=== PATIENT | male | born 1995 | race Hispanic/Latino ===

== ENCOUNTER 2018-03-21 15:57 | Emergency (ER) | payer BC ==
[2018-03-21] MEDS ORDERED: NA CHLORIDE 0.9% 1,000 ML ONE (18:08)
[2018-03-21 18:43] LABS: Urine Blood NEGATIVE (NEG); Urine Glucose NEGATIVE (NEG); Urine Protein NEGATIVE (NEG); Urine Specific Gravity 1.025 (1.005-1.030)
[2018-03-21] MEDS ORDERED: KETOROLAC 30 MG/ML INJ ONE (18:47)
[2018-03-21] MEDS ORDERED: ONDANSETRON 4 MG/2 ML VIAL ONE (18:47)
[2018-03-21 18:56] LABS: Absolute Monocytes 0.8 K/uL (0.1-1.3); Basophils % 0.6 % (0-1.3); Eosinophils % 2.9 % (0-4.4); Hematocrit 42.7 % (39.6-49.0); Lymphocytes % 21.9 % (15.3-44.8); MCV 93.6 fL (80-100); MPV 7.6 fL (7.6-11.3); Monocytes % 9.3 % (3.3-12.3); RBC Red Blood Cell Count 4.56 M/uL (4.33-5.43)
--- NOTE | 2018-03-21 19:05 | RAD REPORT ---
EXAM DESCRIPTION: CT - Stone Protocol - 03/21/2018 6:55 pm CLINICAL HISTORY: Flank pain. FLANK PAIN COMPARISON: None TECHNIQUE: Axial images were obtained without oral or IV contrast. Lack of contrast limits solid org an and vascular assessment. The [id number] spans the entirety of the system partially obscuring uppermost abdomen and lung bases. Coronal reformatted images were obtained and reviewed. All CT scans are performed using dose optimization technique as appropriate and may include automated exposure control or mA/KV adjustment according to patient size. FINDINGS: The lower lung dut[place] are clear. Imaged portions of the liver and spleen show no suspicious findings on non-contrast imaging. The panc reas and adrenal glands are normal. No pathologic lymphadenopathy in the abdomen or pelvis. No urinary tract stones or obstructive uropathy. No bowel obstruction, free air, free fluid or abscess. Normal appendix noted.21 mm area of epiploic a ppendagitis seen adjacent to the descending colon in the left flank region. No significant bony abnormality. IMPRESSION: No urinary tract stones or obstructive uropathy. Epiploic appendagitis is present in the left flank region adjacent to the descending colon.
[2018-03-21 19:15] LABS: ALT/SGPT 94 U/L (12-78); AST/SGOT 25 U/L (15-37); Albumin 3.9 g/dL (3.4-5.0); Alkaline Phosphatase 64 U/L (45-117); Amylase Level 31 U/L (25-115); BUN Blood Urea Nitrogen 13 mg/dL (7-18); Bicarbonate 28 mmol/L (21-32); Bilirubin Direct < 0.1 mg/dL (0-0.2); Bilirubin Total 0.3 mg/dL (0.2-1.0); Creatine Phosphokinase 157 U/L (39-308); Glucose Level 96 mg/dL (74-106); Lipase 115 U/L (73-393); Potassium 4.1 mmol/L (3.5-5.1); Protein, Total 7.8 g/dL (6.4-8.2); Sodium Level 138 mmol/L (136-145)
--- NOTE | 2018-03-21 19:25 | ER ---
Nurse's Notes [facility] Name: Boris Beebe Age: 22 yrs Sex: Male : 1995 Arrival Date: 03/21/2018 Time: 16:11 Bed 23 Private MD: Shahbaz Nick H Diagnosis: Other abdominal pain-Epiploic Appendagitis Presentation: 03/21 16:46 Presenting complaint: Patient states: yesterday had left side abd pain, thought it was iw sore from playing with dogs, pain has gotten worse today, denies n/v/d. Transition of care: patient was not received from another setting of care. Onset of symptoms was March 20, 2018. Risk Assessment: Do you want to hurt yourself or someone else? Patient reports no desire to harm self or others. Initial Sepsis Screen: Does the patient meet any 2 criteria? No. Patient's initial sepsis screen is negative. Does the patient have a suspected source of infection? No. Patient's initial sepsis screen is negative. Care prior to arrival: None. 16:46 Method Of Arrival: Ambulatory iw 16:46 Acuity: MARY 3 iw Triage Assessment: 19:42 General: Behavior is calm, cooperative, appropriate for age. mb3 Historical: - Allergies: 16:49 NKA; iw - Home Meds: 16:49 Clonazepam Oral [Active]; Flexeril Oral [Active]; iw - PSHx: 16:49 Tonsillectomy; left ankle; iw - Immunization history:: Adult Immunizations. - Social history:: Smoking status: Patient uses tobacco products, smokes one-half pack cigarettes per day, Patient uses alcohol, weekends only. - Ebola Screening: : Patient negative for fever greater than or equal to 101.5 degrees Fahrenheit, and additional compatible Ebola Virus Disease symptoms Patient denies exposure to infectious person Patient denies travel to an Ebola-affected area in the 21 days before illness onset No symptoms or risks identified at this time. Screenin:39 Abuse screen: Denies threats or abuse. Nutritional screening: No deficits noted. mb3 Tuberculosis screening: No symptoms or risk factors identified. Fall Risk None identified. Assessment: 19:37 General: Appears in no apparent distress. comfortable. Pain: Complains of pain in left mb3 lower quadrant Pain radiates to left low back. Neuro: No deficits noted. Cardiovascular: No deficits noted. Respiratory: No deficits noted. GI: Abdomen is flat, Bowel sounds present X 4 quads. Abd is soft and non tender Reports lower abdominal pain. : No signs and/or symptoms were reported regarding the genitourinary system. EENT: No signs and/or symptoms were reported regarding the EENT system. Vital Signs: 16:48 BP 143 / 93; Pulse 94; Resp 16; Temp 97.1; Pulse Ox 98% on R/A; Weight 106.59 kg; iw Height 5 ft. 8 in. (172.72 cm); Pain 7/10; 19:40 BP 121 / 77; Pulse 70; Resp 16; Pulse Ox 98% on R/A; mb3 16:48 Body Mass Index 35.73 (106.59 kg, 172.72 cm) iw ED Course: 16:11 Patient arrived in ED. as 16:11 Shahbaz Nick DO is Private Physician. as 16:47 Triage completed. iw 16:48 Arm band placed on. iw 17:32 Arnaud Sumner, RN is Primary Nurse. mb3 17:46 Tan Arzate PA is PHCP. cp 17:46 Tan Pierce MD is Attending Physician. cp 18:10 Inserted saline lock: 20 gauge in right antecubital area, using aseptic technique. mb3 Blood collected. 18:55 CT Stone Protocol In Process Unspecified. EDMS 19:40 No provider procedures requiring assistance completed. mb3 19:40 IV discontinued, intact, bleeding controlled, No redness/swelling at site. Pressure mb3 dressing applied. 19:42 Patient has correct armband on for positive identification. mb3 Administered Medications: 18:15 Drug: NS 0.9% 1000 ml Route: IV; Rate: 1 bolus; Site: right antecubital; mb3 19:36 Follow up: Response: No adverse reaction; IV Status: Completed infusion; IV Intake: mb3 1000ml 18:40 Drug: Zofran 4 mg Route: IVP; Site: right antecubital; mb3 19:36 Follow up: Response: No adverse reaction mb3 18:40 Drug: TORadol 30 mg Route: IVP; Site: right antecubital; mb3 19:36 Follow up: Response: No adverse reaction mb3 Intake: 19:36 IV: 1000ml; Total: 1000ml. mb3 Outcome: 19:25 Discharge ordered by . cp 19:41 Discharged to home ambulatory. mb3 19:41 Condition: stable 19:41 Discharge instructions given to patient, Instructed on discharge instructions, follow up and referral plans. medication usage, Demonstrated understanding of instructions, follow-up care, medications, Prescriptions given X 2. 19:42 Patient left the ED. mb3 Signatures: Dispatcher [employer] EDMS Reina Short as Alis Salinas, RN RN Tan Lindsay PA PA cp Barnett, Mark, RN RN mb3
--- NOTE | 2018-03-21 19:25 | EDPHYS ---
Physician Documentation [facility] Name: Boris Beebe Age: 22 yrs Sex: Male : 1995 Arrival Date: 03/21/2018 Time: 16:11 Bed 23 Private MD: Shahbaz Nick H ED Physician Tan Pierce HPI: 03/21 18:00 This 22 yrs old Male presents to ER via Ambulatory with complaints of cp Abdominal Pain. 18:00 The patient presents with abdominal pain left lateral abdomen. Onset: The cp symptoms/episode began/occurred yesterday. The symptoms do not radiate. 18:00 Associated signs and symptoms: Pertinent negatives: nausea, vomiting, and diarrhea, cp blood in stools, chest pain, constipation, dysuria, fever, shortness of breath, testicular pain. The symptoms are described as waxing/waning. Modifying factors: the symptoms are aggravated by pressure. Historical: - Allergies: 16:49 NKA; iw - Home Meds: 16:49 Clonazepam Oral [Active]; Flexeril Oral [Active]; iw - PSHx: 16:49 Tonsillectomy; left ankle; iw - Immunization history:: Adult Immunizations. - Social history:: Smoking status: Patient uses tobacco products, smokes one-half pack cigarettes per day, Patient uses alcohol, weekends only. - Ebola Screening: : Patient negative for fever greater than or equal to 101.5 degrees Fahrenheit, and additional compatible Ebola Virus Disease symptoms Patient denies exposure to infectious person Patient denies travel to an Ebola-affected area in the 21 days before illness onset No symptoms or risks identified at this time. ROS: 18:05 Constitutional: Negative for body aches, chills, fever, poor PO intake. cp 18:05 Eyes: Negative for injury, pain, redness, and discharge. cp 18:05 ENT: Negative for drainage from ear(s), ear pain, sore throat, difficulty swallowing, difficulty handling secretions. 18:05 Cardiovascular: Negative for chest pain, edema, palpitations. 18:05 Respiratory: Negative for cough, shortness of breath, wheezing. 18:05 Abdomen/GI: Positive for abdominal pain, of the anterior aspect of left lateral abdomen, left upper quadrant and left lower quadrant, Negative for nausea, vomiting, and diarrhea, constipation, anorexia, black/tarry stool, rectal bleeding. 18:05 Back: Negative for injury or acute deformity. 18:05 : Negative for urinary symptoms, testicular pain 18:05 Skin: Negative for cellulitis, rash. 18:05 Neuro: Negative for altered mental status, headache, weakness. 18:05 All other systems are negative. Exam: 18:12 Constitutional: The patient appears in no acute distress, alert, non-toxic, well cp developed, well nourished. 18:12 Head/Face: Normocephalic, atraumatic. cp 18:12 Eyes: Periorbital structures: appear normal, Conjunctiva: normal, no exudate, no injection, Sclera: no appreciated abnormality, Lids and lashes: appear normal, bilaterally. 18:12 ENT: External ear(s): are unremarkable, Nose: is normal, Mouth: is normal, Posterior pharynx: is normal, airway is patent, no erythema, no exudate. 18:12 Chest/axilla: Inspection: normal, Palpation: is normal, no crepitus, no tenderness. 18:12 Cardiovascular: Rate: normal, Rhythm: regular, Edema: is not appreciated, JVD: is not appreciated. 18:12 Respiratory: the patient does not display signs of respiratory distress, Respirations: normal, no use of accessory muscles, no retractions, no splinting, no tachypnea, labored breathing, is not present, Breath sounds: are clear throughout, no decreased breath sounds, no stridor, no wheezing. 18:12 Abdomen/GI: Inspection: abdomen appears normal, Bowel sounds: active, all quadrants, Palpation: soft, in all quadrants, mild abdominal tenderness, in the anterior aspect of left lateral abdomen, left upper quadrant and left lower quadrant, voluntary guarding, is not appreciated, involuntary guarding, is not appreciated. 18:12 Back: CVA tenderness, is absent. 18:12 Musculoskeletal/extremity: Exam is negative for calf tenderness, decreased range of motion, deformity, injury. 18:12 Skin: cellulitis, is not appreciated, no rash present. 18:12 Neuro: Orientation: to person, place \T\ time. Mentation: lucid, able to follow commands, Cerebellar function: is grossly normal, Motor: moves all fours, strength is normal, Sensation: is normal. Vital Signs: 16:48 BP 143 / 93; Pulse 94; Resp 16; Temp 97.1; Pulse Ox 98% on R/A; Weight 106.59 kg; iw Height 5 ft. 8 in. (172.72 cm); Pain 7/10; 19:40 BP 121 / 77; Pulse 70; Resp 16; Pulse Ox 98% on R/A; mb3 16:48 Body Mass Index 35.73 (106.59 kg, 172.72 cm) iw MDM: 17:46 Patient medically screened. cp 18:00 Differential diagnosis: appendicitis, bowel obstruction, cholecystitis, Cholelithiasis, cp diverticulitis, GI Bleed, Pyelonephritis, Testicular Torsion, Ureterolithiasis, urinary tract infection. 19:23 Data reviewed: vital signs, nurses notes, lab test result(s), radiologic studies, CT cp scan, and as a result, I will discharge patient. 19:23 Counseling: I had a detailed discussion with the patient and/or guardian regarding: the cp historical points, exam findings, and any diagnostic results supporting the discharge/admit diagnosis, lab results, radiology results, to return to the emergency department if symptoms worsen or persist or if there are any questions or concerns that arise at home. Response to treatment: the patient's symptoms have mildly improved after treatment. Special discussion: Based on the patient's Hx, exam, and Dx evaluation, there is no indication for emergent surgery or inpatient Tx. It is understood by the patient/guardian that if the Sx's persist or worsen they need to return immediately for re-evaluation. 03/21 17:55 Order name: Amylase, Serum cp 03/21 17:55 Order name: Basic Metabolic Panel 03/21 17:55 Order name: CBC with Diff; Complete Time: 19:07 03/21 19:07 Interpretation: Reviewed. 03/21 17:55 Order name: Creatinine for Radiology; Complete Time: 19:07 03/21 17:55 Order name: Hepatic Function; Complete Time: 19:21 cp 03/21 19:21 Interpretation: Normal except: ALT 94; GLOB 3.9; A/G 1.0. 03/21 17:55 Order name: Lipase; Complete Time: 19:21 03/21 17:55 Order name: Urine Microscopic Only 03/21 17:55 Order name: CPK; Complete Time: 19:21 03/21 17:56 Order name: Amylase Level; Complete Time: 19:21 [facility] 03/21 17:56 Order name: Basic Metabolic Panel; Complete Time: 19:21 [facility] 03/21 18:16 Order name: Urine Dipstick--Ancillary (enter results); Complete Time: 19:07 03/21 18:43 Order name: CT Stone Protocol; Complete Time: 19:07 03/21 17:55 Order name: IV Saline Lock; Complete Time: 19:37 03/21 17:55 Order name: Labs collected and sent; Complete Time: 19:37 03/21 17:55 Order name: Urine Dipstick-Ancillary (obtain specimen); Complete Time: 19:37 cp Administered Medications: 18:15 Drug: NS 0.9% 1000 ml Route: IV; Rate: 1 bolus; Site: right antecubital; mb3 19:36 Follow up: Response: No adverse reaction; IV Status: Completed infusion; IV Intake: mb3 1000ml 18:40 Drug: Zofran 4 mg Route: IVP; Site: right antecubital; mb3 19:36 Follow up: Response: No adverse reaction mb3 18:40 Drug: TORadol 30 mg Route: IVP; Site: right antecubital; mb3 19:36 Follow up: Response: No adverse reaction 3 Disposition: 03/21/18 19:25 Discharged to Home. Impression: Other abdominal pain - Epiploic Appendagitis. - Condition is Stable. - Discharge Instructions: Abdominal Pain, Adult. - Prescriptions for Diclofenac Sodium 75 mg Oral Tablet, Delayed Release (E.C.) - take 1 tablet by ORAL route 2 times per day; 20 tablet. Zofran 4 mg Oral Tablet - take 1 tablet by ORAL route every 12 hours As needed; 20 tablet. - Medication Reconciliation Form, Thank You Letter, Antibiotic Education, Prescription Opioid Use form. - Follow up: Private Physician; When: 2 - 3 days; Reason: Recheck today's complaints. - Problem is new. - Symptoms have improved. Addendum: 03/24/2018 10:33 Co-signature as Attending Physician, Tan Pierce MD I agree with the assessment and c miller plan of care. Signatures: Dispatcher [employer] [facility] Tan Pierce MD MD cha Williams, Irene, RN RN Tan Lindsay PA PA Arnaud Toth, RN RN mb3 Corrections: (The following items were deleted from the chart) 03/21 19:42 19:25 03/21/2018 19:25 Discharged to Home. Impression: Other abdominal pain - Epiploic mb3 Appendagitis. Condition is Stable. Forms are Medication Reconciliation Form, Thank You Letter, Antibiotic Education, Prescription Opioid Use. Follow up: Private Physician; When: 2 - 3 days; Reason: Recheck today's complaints. Problem is new. Symptoms have improved. cp
[2018-03-21 19:53] VITALS: TEMP 97.1; O2SAT 98
[2018-03-21 19:55] VITALS: BP 121/77
[2018-03-21 20:08] LABS: Urine Bacteria <20 /HPF (NONE SEEN); Urine Culture Reflex Order NOT NEEDED; Urine RBC <5 /HPF (NONE SEEN)
== END 2018-03-21 19:42 | disposition home or self-care (01) ==
LOC: ER 15:57
DX: K63.89 Other specified diseases of intestine (principal); F17.210 Nicotine dependence, cigarettes, uncomplicated
CPT/HCPCS: 36415; 74176; 76377; 80048; 80076; 81003; 81015; 82150; 82550; 83690; 85025; 96361; 96374; 96375; 99284; J2405; J7030

== ENCOUNTER 2020-05-05 15:55 | Emergency (ER) | payer BC ==
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
--- OUTSIDE RECORDS SUMMARY | 2020-05-05 15:59 | XMS REPORT | Summary of Care ---
:1995 Author Organization [facility] - Health Address [address] [place] [address] Care Team Providers Name Role Phone Unavailable Primary Care Provider Unavailable Encounter Details Date Type Department Care Team Description 04/06/2020 Letter (Out) [facility] [employer] Message s Doctor Unassigned, No [address] [facility] [place] [phone] [facility] [phone] [place] [address] Allergies Not on Filedocumented as of this encounter (statuses as of 04/06/2020) Medications Not on filedocumented as of this encounter (statuses as of 04/06/2020) Active Problems Not on filedocumented as of this encounter (statuses as of 04/06/2020) Social History Tobacco Use Types Packs/Day Years Used Date Never Assessed Sex Assigned at Date Recorded Not on file documented as of this encounter Last Filed Vital Signs Not on filedocumented in this encounter Plan of Treatment Date Type Specialty Care Team Description 04/06/2020 Laboratory Only Family Medicine Yolis Call FNP [address] [place] [phone] Arrived Lab, Adc Fam Pob I Health Maintenance Due Date Last Done Comments VARICELLA VACCINES (1 of 2 - 2-dose 1997 childhood series) MENINGOCOCCAL B VACCINES (1 of 2 - 2006 Risk Bexsero 2-dose series) HPV VACCINES (1 - Male 2-dose 2007 series) Depression Screening 2008 DTaP,Tdap,and Td Vaccines (1 - 2015 Tdap) INFLUENZA VACCINE (#1) 2020 PNEUMOCOCCAL 0-64 YEARS COMBINED Aged Out No longer eligible based on SERIES patient's age to complete this topic documented as of this encounter Results Not on filedocumented in this encounter Insurance Payer Benefit Plan Subscriber ID Effective Dates Phone Address Type / Group [facility] [id number] 2017-Phyllis [phone] [address] PPO/POS [place] - OUT OF 7 [id number] [place] [address] documented as of this encounter
--- OUTSIDE RECORDS SUMMARY | 2020-05-05 15:59 | XMS REPORT | Summary of Care ---
:1995 Author Organization [facility] - [facility] Address [address] [place] [address] Care Team Providers Name Role Phone Unavailable Primary Care Provider Unavailable Reason for Visit Reason Comments LAB covid Encounter Details Date Type Department Care Team Description 04/06/2020 Laboratory Only [facility] Family Gabe Call, AUGER SUPERVISOR [address] [place] [phone] Exposure to Covid-[address] [facility] Fam Pob I Virus (Primary Dx) [address] [place] [address] Allergies Not on Filedocumented as of this encounter (statuses as of 04/06/2020) Medications Not on filedocumented as of this encounter (statuses as of 04/06/2020) Active Problems Not on filedocumented as of this encounter (statuses as of 04/06/2020) Social History Tobacco Use Types Packs/Day Years Used Date Never Assessed Sex Assigned at Date Recorded Not on file COVID-19 Exposure Response Date Recorded In the last month, have you been in contact with Yes 04/06/2020 4:11 PM CDT someone who was confirmed or suspected to have Coronavirus / COVID-19? documented as of this encounter Last Filed Vital Signs Not on filedocumented in this encounter Nursing Notes Judith Miner RN - 04/06/2020 4:20 PM CDTRliat Karen Beebe is a 24 year old male here for COVID Screening with a Nasopharyngeal Swab All droplet and contact precautions taken with appropriate PPE worn while interacting with patient. ? Goggles ? N95 Mask ? Gloves ? Gown RR 17 Pulse Ox 97% Patient educated on plan of care for visit, swabbing technique, risks and benefits of test and length of time to receive results. Verbal consent obtained to perform test. CDC Fact Sheet for Patients nCoV Diagnostic Panel dated 11/08/2019 and Factsheet What to Do if Sick with COVID 19 10/19/19 provided. Patient swabbed per appropriate nasopharyngeal technique, and patient tolerated well. Patient was discharged from the testing clinic in stable condition. Bilat nares swabbed. Judith Miner RN 04/06/2020 4:12 PM documented in this encounter Plan of Treatment Name Type Priority Associated Diagnoses Order S chedule COVID-19 (PCR MOLECULAR LAB Routine Exposure to Covid -19 Expected: 04/06/2020, TESTING) Virus Expires: 2020 Health Maintenance Due Date Last Done Comments [...] Results Not on filedocumented in this encounter Visit Diagnoses Diagnosis Exposure to Covid-19 Virus - Primary documented in this encounter Additional Health Concerns Infection Onset Date Last Indicated Resolved Time COVID-19 Rule Out 04/06/2020 04/06/2020 documented as of this encounter Insurance Payer Benefit Plan Subscriber ID Effective Dates Phone Address Type / Group [facility] [id number] 2017-Phyllis [phone] [address] PPO/POS [place] - OUT OF t 7 [id number] [place] [address] documented as of this encounter
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
--- NOTE | 2020-05-05 19:19 | RAD REPORT ---
EXAM DESCRIPTION: RAD - Chest Single View - 05/05/2020 7:00 pm CLINICAL HISTORY: COUGH COMPARISON: None TECHNIQUE: AP portable chest image was obtained 05/05/2020 7:00 pm . FINDINGS: Lung volumes are very low. No peripheral mass or consolidation. No significant failure or volume overload identified. Heart and vasculature are normal. No measurable pleural effusion and no p neumothorax. No acute bony abnormality seen. No acute aortic findings suspected. IMPRESSION: No acute cardiopulmonary process.
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
[2020-05-05 19:24] LABS: Absolute Lymphocytes (CBC) 1.7 K/uL (0.7-4.9); Basophils % 1.4 % (0-1.3); Lymphocytes % 34.8 % (15.3-44.8); MPV 7.8 fL (7.6-11.3); RBC Red Blood Cell Count 4.08 M/uL (4.33-5.43)
[2020-05-05 22:00] LABS: C-Reactive Protein 9.06 mg/L (<3.00); Potassium 4.1 mmol/L (3.5-5.1)
[2020-05-05] MEDS ORDERED: KETOROLAC 30 MG/ML INJ ONE (22:16)
[2020-05-05] MEDS ORDERED: dexAMETHasone 10 MG/ML VIAL ONE (22:45)
--- NOTE | 2020-05-05 22:47 | EDPHYS ---
Physician Documentation [facility] Name: Boris Beebe Age: 24 yrs Sex: Male : 1995 Arrival Date: 05/05/2020 Time: 15:56 Bed 26 Private MD: Shahbaz Nick H ED Physician Garcia Contreras HPI: 05/05 18:03 This 24 yrs old Male presents to ER via Ambulatory with complaints of Wound jmm Infection. 18:03 The patient presents with pain, that is acute. Onset: The symptoms/episode jmm began/occurred acutely, 1 day(s) ago. Modifying factors: The symptoms are alleviated by nothing. the symptoms are aggravated by nothing. This is a 24 year old male with a history of anxiety that presents to the ED with complaints of swelling to his right great toe and foot and removing his nail yesterday. Patient [place] Patient also complains of diarrhea, cough, sore throat. . Historical: - Allergies: 16:31 NKA; ca1 - Home Meds: 16:31 Clonazepam Oral [Active]; Tylenol #4 Oral [Active]; ca1 - PMHx: 16:31 None; ca1 - PSHx: 16:31 Tonsillectomy; left ankle; ca1 - Immunization history:: Adult Immunizations up to date. - Social history:: Smoking status: Patient reports the use of cigarette tobacco products, denies chronic smoking, but will smoke occasionally. ROS: 18:03 Constitutional: Negative for fever, chills, and weight loss, Cardiovascular: Negative jmm for chest pain, palpitations, and edema. 18:03 Respiratory: Positive for cough. 18:03 Abdomen/GI: Positive for diarrhea. 18:03 MS/extremity: Positive for pain, swelling. 18:03 All other systems are negative. Exam: 18:03 Constitutional: This is a well developed, well nourished patient who is awake, alert, jmm and in no acute distress. Head/Face: atraumatic. Eyes: EOMI, no conjunctival erythema appreciated ENT: Moist Mucus Membranes Neck: Trachea midline, Supple Chest/axilla: Normal chest wall appearance and motion. Cardiovascular: Regular rate and rhythm. No edema appreciated Respiratory: Normal respirations, no respiratory distress appreciated Abdomen/GI: Non distended, soft Back: Normal ROM 18:03 Musculoskeletal/extremity: FROM appreciated to the right lower extremity, full dorsalis pulse, compartments are soft, NVI. 18:03 Skin: mild erythema noted surrounding the nail bed of the right 1st toe, no streaking apprciated,. 18:03 Neuro: Orientation: is normal, Mentation: is normal, Memory: is normal. 18:03 Psych: Behavior/mood is pleasant, cooperative. Vital Signs: 16:24 BP 146 / 84; Pulse 87; Resp 16 S; Temp 97.2; Pulse Ox 100% on R/A; Weight 107.95 kg ca1 (R); Height 5 ft. 8 in. (172.72 cm) (R); Pain 8/10; 18:23 BP 128 / 84; Pulse 90; Resp 16; Pulse Ox 99% on R/A; Pain 7/10; ls4 16:24 Body Mass Index 36.19 (107.95 kg, 172.72 cm) ca1 MDM: 18:19 Patient medically screened. kev 22:40 Data reviewed: vital signs, nurses notes. Counseling: I had a detailed discussion with kev the patient and/or guardian regarding: the historical points, exam findings, and any diagnostic results supporting the discharge/admit diagnosis, lab results, radiology results, the need for outpatient follow up, to return to the emergency department if symptoms worsen or persist or if there are any questions or concerns that arise at home. ED course: Patient is alert and non toxic in appearance in the ED. No signs of resp distress appreciated. Patient may be developed cellulitis around the nail bed of the great toe. Will prescribed oral abx. Patient is otherwise given strict return precaution. Patient understood and agrees with the plan of care. . 05/05 18:32 Order name: CBC with Diff; Complete Time: 19:31 [facility] 05/05 18:32 Order name: BMP; Complete Time: 22:03 [facility] 05/05 18:02 Order name: Foot Right 3 View XRAY; Complete Time: 19:31 ls4 05/05 18:32 Order name: Procalcitonin; Complete Time: 20:56 [facility] 05/05 18:32 Order name: Lactate; Complete Time: 19:41 [facility] 05/05 18:32 Order name: CRP; Complete Time: 22:03 [facility] 05/05 18:08 Order name: Chest Single View XRAY; Complete Time: 19:31 ls4 05/05 18:32 Order name: Saline Lock; Complete Time: 18:47 [facility] 05/05 19:44 Order name: Labs - recollect needed: chemistry; Complete Time: 20:57 sg Administered Medications: 22:15 Drug: TORadol 30 mg Route: IVP; Site: right antecubital; ls4 22:44 Follow up: Response: No adverse reaction; Marked relief of symptoms ls4 22:44 Drug: Decadron - Dexamethasone 10 mg Route: IVP; Site: right antecubital; ls4 22:44 Follow up: Response: No adverse reaction ls4 Disposition: 05/05/20 22:46 Discharged to Home. Impression: Nail Avulsion, Cough, Diarrhea. - Condition is Stable. - Discharge Instructions: Nail Avulsion, COVID-19. - Prescriptions for Doxycycline Hyclate 100 mg Oral Tablet - take 1 tablet by ORAL route every 12 hours; 20 tablet. - Medication Reconciliation Form, Thank You Letter, Antibiotic Education, Prescription Opioid Use form. - Follow up: Private Physician; When: 2 - 3 days; Reason: Recheck today's complaints, Continuance of care, Re-evaluation by your physician. Addendum: 05/07/2020 19:29 Co-signature as Attending Physician, Garcia Contreras MD. r n Signatures: Dispatcher [employer] EDMS Rogerio Maya RN RN Scar Tenorio PA PA jmm Nieto, Roman, MD MD rn Stewart, Lisa, RN RN [facility] Leonarda Reyes RN RN [facility] Corrections: (The following items were deleted from the chart) 05/05 22:44 22:40 ED course: Patient is alert and non toxic in appearance in the ED. No signs of jmm resp distress. [facility] 23:12 22:46 05/05/2020 22:46 Discharged to Home. Impression: Nail Avulsion; Cough; Diarrhea. ls4 Condition is Stable. Forms are Medication Reconciliation Form, Thank You Letter, Antibiotic Education, Prescription Opioid Use. Follow up: Private Physician; When: 2 - 3 days; Reason: Recheck today's complaints, Continuance of care, Re-evaluation by your physician. [facility]
--- NOTE | 2020-05-05 22:47 | ER ---
Nurse's Notes [facility] Name: Boris Beebe Age: 24 yrs Sex: Male : 1995 Arrival Date: 05/05/2020 Time: 15:56 Bed 26 Private MD: Shahbaz Nick H Diagnosis: Nail Avulsion;Cough;Diarrhea Presentation: 05/05 16:24 Chief complaint: Patient states: Hit R foot on a rock on the weekend, yanked off my the ca1 nail on the big toe of the R foot. C/O pain on R toe pulsating up the R leg, swollen, red, draining yellowing drainage. Reports fever, sore throat, cough. Coronavirus screen: Client denies travel out of the [place] in the last 14 days. chills, cough unrelated to allergies, fever, sore throat, Client presents with at least one sign or symptom that may indicate coronavirus-19. Standard/surgical mask placed on the client. Provider contacted for isolation considerations. Ebola Screen: Patient negative for fever greater than or equal to 101.5 degrees Fahrenheit, and additional compatible Ebola Virus Disease symptoms Patient denies exposure to infectious person. Patient denies travel to an Ebola-affected area in the 21 days before illness onset. No symptoms or risks identified at this time. Initial Sepsis Screen: Does the patient meet any 2 criteria? No. Patient's initial sepsis screen is negative. Does the patient have a suspected source of infection? No. Patient's initial sepsis screen is negative. Risk Assessment: Do you want to hurt yourself or someone else? Patient reports no desire to harm self or others. Onset of symptoms was May 05, 2020. 16:24 Method Of Arrival: Ambulatory ca1 16:24 Acuity: MARY 3 ca1 Triage Assessment: 18:08 General: Appears uncomfortable, Behavior is calm, cooperative. Pain: Complains of pain ls4 in medial aspect of right toes, right first toe and Right first toenail Pain currently is 8 out of 10 on a pain scale. EENT: Reports sore throat . Neuro: No deficits noted. Cardiovascular: No deficits noted. Respiratory: Reports cough that is non-productive, dry, hacking, persistent Airway is patent Respiratory effort is even, unlabored, Respiratory pattern is regular, Historical: - Allergies: 16:31 NKA; ca1 - Home Meds: 16:31 Clonazepam Oral [Active]; Tylenol #4 Oral [Active]; ca1 - PMHx: 16:31 None; ca1 - PSHx: 16:31 Tonsillectomy; left ankle; ca1 - Immunization history:: Adult Immunizations up to date. - Social history:: Smoking status: Patient reports the use of cigarette tobacco products, denies chronic smoking, but will smoke occasionally. Screenin:16 Abuse screen: Denies threats or abuse. Denies injuries from another. Nutritional ls4 screening: No deficits noted. Tuberculosis screening: No symptoms or risk factors identified. Fall Risk None identified. Assessment: 18:09 Reassessment: Patient appears in no apparent distress at this time. No changes from ls4 previously documented assessment. Patient is alert, oriented x 3, equal unlabored respirations, skin warm/dry/pink. 19:00 Reassessment: Patient appears in no apparent distress at this time. No changes from ls4 previously documented assessment. Patient is alert, oriented x 3, equal unlabored respirations, skin warm/dry/pink. 21:00 Reassessment: Patient appears in no apparent distress at this time. No changes from ls4 previously documented assessment. Patient is alert, oriented x 3, equal unlabored respirations, skin warm/dry/pink. 22:00 Reassessment: Patient appears in no apparent distress at this time. No changes from ls4 previously documented assessment. Patient is alert, oriented x 3, equal unlabored respirations, skin warm/dry/pink. 23:12 Reassessment: Patient appears in no apparent distress at this time. No changes from ls4 previously documented assessment. Patient is alert, oriented x 3, equal unlabored respirations, skin warm/dry/pink. Vital Signs: 16:24 BP 146 / 84; Pulse 87; Resp 16 S; Temp 97.2; Pulse Ox 100% on R/A; Weight 107.95 kg ca1 (R); Height 5 ft. 8 in. (172.72 cm) (R); Pain 8/10; 18:23 BP 128 / 84; Pulse 90; Resp 16; Pulse Ox 99% on R/A; Pain 7/10; ls4 16:24 Body Mass Index 36.19 (107.95 kg, 172.72 cm) ca1 ED Course: 15:56 Patient arrived in ED. ag5 15:56 Shahbaz Nick DO is Private Physician. ag5 16:29 Triage completed. ca1 16:31 Arm band placed on right wrist. ca1 17:50 Scar Tenorio PA is PHCP. jmm 17:50 Garcia Contreras MD is Attending Physician. jmm 18:16 Patient has correct armband on for positive identification. Bed in low position. Call ls4 light in reach. Side rails up X 1. Pulse ox on. NIBP on. Verbal reassurance given. 18:16 No provider procedures requiring assistance completed. Irrigation of Right first toe ls4 avulsion irrigated with normal saline Patient tolerated well soaked in normal saline. Wound care: to. 18:22 Tangela Jorge, AUTUMN is Primary Nurse. ls4 18:47 Chest Single View XRAY Sent. ls4 18:48 Foot Right 3 View XRAY Sent. ls4 19:00 Foot Right 3 View XRAY In Process Unspecified. EDMS 19:00 Chest Single View XRAY In Process Unspecified. EDMS 19:07 No apparent distress. Resting quietly. ls4 19:07 Initial lab(s) drawn, by pr, sent to lab. X-ray(s) taken. Inserted saline lock: 18 ls4 gauge in right antecubital area, using aseptic technique. Blood collected. Patient maintains SpO2 saturation greater than 95% on room air. 23:11 IV discontinued, intact, bleeding controlled, No redness/swelling at site. Pressure ls4 dressing applied. Administered Medications: 22:15 Drug: TORadol 30 mg Route: IVP; Site: right antecubital; ls4 22:44 Follow up: Response: No adverse reaction; Marked relief of symptoms ls4 22:44 Drug: Decadron - Dexamethasone 10 mg Route: IVP; Site: right antecubital; ls4 22:44 Follow up: Response: No adverse reaction ls4 Outcome: 22:46 Discharge ordered by . kev 23:10 Discharged to Home w/ Home Health ls4 23:10 Condition: stable 23:10 Discharge instructions given to patient, Instructed on discharge instructions, follow up and referral plans. medication usage, Demonstrated understanding of instructions, follow-up care, medications, Prescriptions given X 1. 23:12 Patient left the ED. ls4 Signatures: Dispatcher [employer] EDMS Coby, Scar, PA PA jmm Luisito, Tangela, RN RN ls4 Leonarda Reyes RN RN ca1 Stephanie Nair ag5 Corrections: (The following items were deleted from the chart) 17:01 16:24 Coronavirus screen: Client denies travel out of the [place] in the last 14 days. ca1 chills, cough unrelated to allergies, fever, sore throat, ca1
[2020-05-05 23:56] VITALS: TEMP 97.2
[2020-05-05 23:58] VITALS: BP 128/84; O2SAT 99
== END 2020-05-05 23:12 | disposition home or self-care (01) ==
LOC: ER 15:55
DX: S91.201A Unspecified open wound of right great toe with damage to nail, initial encounter (principal); R05 Cough; R19.7 Diarrhea, unspecified; F17.210 Nicotine dependence, cigarettes, uncomplicated
CPT/HCPCS: 85025; 80048; 36415; 83605; 84145; 86140; 71045; 73630; 96375; 96374; 99285; J1100

== ENCOUNTER 2020-10-19 15:48 | Emergency (ER) | payer BC ==
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
[2020-10-19 17:12] LABS: Urine Blood NEGATIVE (NEG); Urine Glucose TRACE (NEG); Urine Protein 2+ (NEG); Urine Specific Gravity 1.025 (1.005-1.030)
--- NOTE | 2020-10-19 17:27 | ER ---
Nurse's Notes [facility] Name: Boris Beebe Age: 25 yrs Sex: Male : 1995 Arrival Date: 10/19/2020 Time: 15:49 Bed 11 Private MD: Diagnosis: Urinary tract infection, site not specified Presentation: 10/19 16:14 Chief complaint: Patient states: Burning with urination, Urinary urgency and frequency ca1 x 3 days. Also reports whitish penile discharge. Coronavirus screen: Client denies travel out of the [place] in the last 14 days. At this time, the client does not indicate any symptoms associated with coronavirus-19. Ebola Screen: Patient negative for fever greater than or equal to 101.5 degrees Fahrenheit, and additional compatible Ebola Virus Disease symptoms Patient denies exposure to infectious person. Patient denies travel to an Ebola-affected area in the 21 days before illness onset. No symptoms or risks identified at this time. Initial Sepsis Screen: Does the patient meet any 2 criteria? No. Patient's initial sepsis screen is negative. Does the patient have a suspected source of infection? No. Patient's initial sepsis screen is negative. Risk Assessment: Do you want to hurt yourself or someone else? Patient reports no desire to harm self or others. Onset of symptoms was October 19, 2020. 16:14 Method Of Arrival: Ambulatory ca1 16:14 Acuity: MARY 4 ca1 Historical: - Allergies: 16:19 NKA; ca1 - PMHx: 16:19 None; ca1 - PSHx: 16:19 Tonsillectomy; Tib-Fib surgery; Skin Graft; ca1 - Immunization history:: Flu vaccine is not up to date. - Social history:: Smoking status: Patient reports the use of cigarette tobacco products, smokes one-half pack cigarettes per day. Screenin:50 Abuse screen: Denies threats or abuse. Nutritional screening: No deficits noted. aa5 Tuberculosis screening: No symptoms or risk factors identified. Fall Risk None identified. Assessment: 16:50 General: Appears comfortable, Behavior is calm, cooperative. Pain: Denies pain. Neuro: aa5 Level of Consciousness is awake, alert, obeys commands, Oriented to person, place, time, situation. Cardiovascular: Patient's skin is warm and dry. Respiratory: Airway is patent Respiratory effort is even, unlabored, Respiratory pattern is regular, symmetrical. GI: No signs and/or symptoms were reported involving the gastrointestinal system. : Reports burning with urination, discharge, from penis that is white, urinary frequency. EENT: No signs and/or symptoms were reported regarding the EENT system. Derm: Skin is pink, warm \T\ dry. Musculoskeletal: Range of motion: intact in all extremities. 17:50 Reassessment: Patient is alert, oriented x 3, equal unlabored respirations, skin aa5 warm/dry/pink. 18:14 Reassessment: Patient is alert, oriented x 3, equal unlabored respirations, skin aa5 warm/dry/pink. Vital Signs: 16:14 BP 130 / 64; Pulse 78; Resp 16 S; Temp 97.6(TE); Pulse Ox 99% on R/A; Weight 102.06 kg ca1 (R); Height 5 ft. 8 in. (172.72 cm) (R); Pain 0/10; 16:14 Body Mass Index 34.21 (102.06 kg, 172.72 cm) ca1 ED Course: 15:49 Patient arrived in ED. as 16:16 Lesia Aavlos FNP-C is [facility] kb 16:16 Garcia Contreras MD is Attending Physician. kb 16:17 Triage completed. ca1 16:19 Arm band placed on right wrist. ca1 16:49 Suzy Swanson, RN is Primary Nurse. aa5 16:50 Patient has correct armband on for positive identification. aa5 18:14 No provider procedures requiring assistance completed. Patient did not have IV access aa5 during this emergency room visit. Administered Medications: 17:32 CANCELLED (Other Intervention Used): Cipro 500 mg PO once kb 17:50 Drug: Zithromax 1 grams Route: PO; aa5 18:14 Follow up: Response: No adverse reaction aa5 17:50 Drug: Rocephin (cefTRIAXone) 500 mg Route: IM; Site: right gluteus; aa5 18:14 Follow up: Response: No adverse reaction aa5 Outcome: 17:27 Discharge ordered by . kb 18:14 Discharged to home ambulatory. aa5 18:14 Condition: stable 18:14 Discharge instructions given to patient, Instructed on discharge instructions, follow up and referral plans. medication usage, Demonstrated understanding of instructions, follow-up care, medications, Prescriptions given X 1. 18:15 Patient left the ED. aa5 Signatures: Lesia Avalos, Reina Royal Audri, RN RN aa5 Leonarda Reyes RN RN ca1
--- NOTE | 2020-10-19 17:27 | EDPHYS ---
Physician Documentation [facility] Name: Boris Beebe Age: 25 yrs Sex: Male : 1995 Arrival Date: 10/19/2020 Time: 15:49 Bed 11 Private MD: ED Physician Garcia Contreras HPI: 10/19 17:41 This 25 yrs old Male presents to ER via Ambulatory with complaints of Urinary kb Problem. 17:41 The patient presents with symptoms include purulent penile discharge, urinary symptoms, kb dysuria, urinary frequency. Onset: The symptoms/episode began/occurred 3 day(s) ago. Modifying factors: The symptoms are alleviated by nothing, the symptoms are aggravated by urinating. Associated signs and symptoms: Pertinent positives: dysuria, Pertinent negatives: abdominal pain, constipation, diarrhea, fever, hematuria, nausea, vomiting. Severity of symptoms: At their worst the symptoms were moderate, in the emergency department the symptoms are unchanged. The patient has not experienced similar symptoms in the past. The patient has not recently seen a physician. Pt reports dysuria, urinary frequency and white penile discharge for 3 days. Historical: - Allergies: 16:19 NKA; ca1 - PMHx: 16:19 None; ca1 - PSHx: 16:19 Tonsillectomy; Tib-Fib surgery; Skin Graft; ca1 - Immunization history:: Flu vaccine is not up to date. - Social history:: Smoking status: Patient reports the use of cigarette tobacco products, smokes one-half pack cigarettes per day. ROS: 17:39 Constitutional: Negative for fever, chills, and weight loss, Abdomen/GI: Negative for kb abdominal pain, nausea, vomiting, diarrhea, and constipation, MS/Extremity: Negative for injury and deformity, Skin: Negative for injury, rash, and discoloration, Neuro: Negative for headache, weakness, numbness, tingling, and seizure. 17:39 : Positive for urinary symptoms, urinary frequency, burning with urination, penile discharge. Exam: 17:39 Constitutional: This is a well developed, well nourished patient who is awake, alert, kb and in no acute distress. Head/Face: Normocephalic, atraumatic. Abdomen/GI: Soft, non-tender, with normal bowel sounds. No distension or tympany. No guarding or rebound. No evidence of tenderness throughout. Skin: Warm, dry with normal turgor. Normal color with no rashes, no lesions, and no evidence of cellulitis. MS/ Extremity: Pulses equal, no cyanosis. Neurovascular intact. Full, normal range of motion. 17:39 Respiratory: the patient does not display signs of respiratory distress, Respirations: normal. 17:39 Neuro: Orientation: is normal, to person, place, time \T\ situation. Mentation: is normal, able to follow commands, Motor: is normal, moves all fours, Sensation: is normal, Gait: is steady. Vital Signs: 16:14 BP 130 / 64; Pulse 78; Resp 16 S; Temp 97.6(TE); Pulse Ox 99% on R/A; Weight 102.06 kg ca1 (R); Height 5 ft. 8 in. (172.72 cm) (R); Pain 0/10; 16:14 Body Mass Index 34.21 (102.06 kg, 172.72 cm) ca1 MDM: 16:48 Patient medically screened. kb 17:39 Data reviewed: vital signs, nurses notes. Data interpreted: Pulse oximetry: on room air kb is 99 %. Interpretation: normal. Counseling: I had a detailed discussion with the patient and/or guardian regarding: the historical points, exam findings, and any diagnostic results supporting the discharge/admit diagnosis, lab results, the need for outpatient follow up, a urologist, to return to the emergency department if symptoms worsen or persist or if there are any questions or concerns that arise at home. 10/19 17:02 Order name: Urine Dipstick--Ancillary (enter results); Complete Time: 17:13 sp 10/19 17:04 Order name: Urine Microscopic Only; Complete Time: 17:58 kb 10/19 17:55 Order name: Urine Culture EDIN 10/19 16:16 Order name: Urine Dipstick-Ancillary (obtain specimen); Complete Time: 16:50 kb Administered Medications: 17:32 CANCELLED (Other Intervention Used): Cipro 500 mg PO once kb 17:50 Drug: Zithromax 1 grams Route: PO; aa5 18:14 Follow up: Response: No adverse reaction aa5 17:50 Drug: Rocephin (cefTRIAXone) 500 mg Route: IM; Site: right gluteus; aa5 18:14 Follow up: Response: No adverse reaction aa5 Disposition: 10/19/20 17:27 Discharged to Home. Impression: Urinary tract infection, site not specified. - Condition is Stable. - Discharge Instructions: Urinary Tract Infection, Adult, Gfwh-bb-Cadb. - Prescriptions for Cipro 500 mg Oral Tablet - take 1 tablet by ORAL route every 12 hours for 7 days; 14 tablet. - Medication Reconciliation Form, Thank You Letter, Antibiotic Education, Prescription Opioid Use form. - Follow up: Emergency Department; When: As needed; Reason: Worsening of condition. Follow up: Private Physician; When: 2 - 3 days; Reason: Recheck today's complaints, Continuance of care, Re-evaluation by your physician. Addendum: 10/24/2020 07:54 Co-signature as Attending Physician, Garcia Contreras MD. r n Signatures: Dispatcher [employer] EDMS Lesia Avalos, FUNERAL PROFESSIONAL-C FUNERAL PROFESSIONAL-Ckb Garcia Contreras MD MD rn Calderon, Audri RN RN aa5 Leonarda Reyes RN RN ca1 Corrections: (The following items were deleted from the chart) 10/19 17:32 17:26 Cipro 500 mg PO once ordered. kb kb 18:15 17:27 10/19/2020 17:27 Discharged to Home. Impression: Urinary tract infection, site aa5 not specified. Condition is Stable. Forms are Medication Reconciliation Form, Thank You Letter, Antibiotic Education, Prescription Opioid Use. Follow up: Emergency Department; When: As needed; Reason: Worsening of condition. Follow up: Private Physician; When: 2 - 3 days; Reason: Recheck today's complaints, Continuance of care, Re-evaluation by your physician. kb
[2020-10-19 17:54] LABS: Urine Bacteria <20 /HPF (NONE SEEN); Urine Mucus MOD /HPF (NONE SEEN); Urine RBC NONE SEEN /HPF (NONE SEEN)
[2020-10-19] MEDS ORDERED: LIDOCAINE 1% MPF 2 ML AMPULE ONE (18:04)
[2020-10-19] MEDS ORDERED: AZITHROMYCIN 250 MG TAB ONE (18:04)
[2020-10-19] MEDS ORDERED: CEFTRIAXONE 500 MG/VIAL ONE (18:04)
== END 2020-10-19 18:15 | disposition home or self-care (01) ==
LOC: ER 15:48
DX: N39.0 Urinary tract infection, site not specified (principal); F17.210 Nicotine dependence, cigarettes, uncomplicated
CPT/HCPCS: 87088; 87086; 96372; 99283; J2001; J0696; 81003; 81015

== ENCOUNTER 2020-10-26 10:50 | Emergency (ER) | payer BC ==
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
[2020-10-26 13:50] LABS: Hematocrit 38.4 % (39.6-49.0); Lymphocytes % 32.1 % (15.3-44.8); MPV 7.6 fL (7.6-11.3); RBC Red Blood Cell Count 4.12 M/uL (4.33-5.43)
[2020-10-26 14:22] LABS: ALT/SGPT 76 U/L (12-78); AST/SGOT 23 U/L (15-37); Albumin 3.9 g/dL (3.4-5.0); Alkaline Phosphatase 70 U/L (45-117); BUN Blood Urea Nitrogen 15 mg/dL (7-18); Bicarbonate 27 mmol/L (21-32); Bilirubin Direct < 0.1 mg/dL (0-0.2); Bilirubin Total 0.2 mg/dL (0.2-1.0); Glucose Level 107 mg/dL (74-106); Lipase 234 U/L (73-393); Protein, Total 7.5 g/dL (6.4-8.2); Sodium Level 137 mmol/L (136-145)
[2020-10-26 14:43] LABS: SARS-COV-2 RT PCR NEGATIVE (NEGATIVE)
--- NOTE | 2020-10-26 14:43 | RAD REPORT ---
EXAM DESCRIPTION: Carlos Single View10/26/2020 2:33 pm CLINICAL HISTORY: Cough COMPARISON: 2019 FINDINGS: The lungs appear clear of acute infiltrate. The heart is normal size IMPRESSION: No acute abnormalities displayed
--- NOTE | 2020-10-26 15:02 | ER ---
Nurse's Notes [facility] Name: Boris Beebe Age: 25 yrs Sex: Male : 1995 Arrival Date: 10/26/2020 Time: 10:53 Bed 20 Private MD: Diagnosis: Shortness of breath;Hemoptysis;Bronchitis, not specified as acute or chronic Presentation: 10/26 11:04 Chief complaint: Patient states: Runny nose, cough, abd pain for 2 days. N/V today with ll1 dark red blood in it today. On Cipro for UTI, states his UTI symptoms feel better. Coronavirus screen: Client denies travel out of the [place] in the last 14 days. At this time, the client does not indicate any symptoms associated with coronavirus-19. Coronavirus screen: chills, cough unrelated to allergies, fatigue, nausea, runny nose, sore throat, vomiting. Client presents with at least one sign or symptom that may indicate coronavirus-19. Standard/surgical mask placed on the client. Ebola Screen: Patient denies travel to an Ebola-affected area in the 21 days before illness onset. Initial Sepsis Screen: Does the patient meet any 2 criteria? No. Patient's initial sepsis screen is negative. Does the patient have a suspected source of infection? Yes: Acute abdominal pain. Risk Assessment: Do you want to hurt yourself or someone else? Patient reports no desire to harm self or others. Onset of symptoms was October 25, 2020. 11:04 Method Of Arrival: Ambulatory ll1 11:04 Acuity: MARY 3 ll1 11:12 Chief complaint: NKDA. No significant medical history. L ankle sx. 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 Historical: - Allergies: 12:29 NKA; sv - PSHx: 12:29 Tonsillectomy; Tib-Fib surgery; Skin Graft; sv - Immunization history:: Flu vaccine is not up to date. - Social history:: Smoking status: Patient denies any tobacco usage or history of. Screenin:12 Abuse screen: Denies threats or abuse. Denies injuries from another. Nutritional ph screening: No deficits noted. Tuberculosis screening: No symptoms or risk factors identified. Fall Risk None identified. Assessment: 14:10 General: Appears in no apparent distress. comfortable, Behavior is calm, cooperative, ph appropriate for age. Pain: Complains of pain in abdomen. Neuro: Level of Consciousness is awake, alert, obeys commands, Oriented to person, place, time, situation. Cardiovascular: Capillary refill < 3 seconds in bilateral fingers Patient's skin is warm and dry. Respiratory: Reports cough that is Airway is patent Respiratory effort is even, unlabored, Respiratory pattern is regular, symmetrical, Denies shortness of breath. GI: Abdomen is non-distended. GI: Reports nausea, vomiting. Derm: Skin is intact, Skin is pink, warm \\T\\ dry. Musculoskeletal: Circulation, motion, and sensation intact. Range of motion: intact in all extremities. 15:45 Reassessment: Patient appears in no apparent distress at this time. Patient and/or ph family updated on plan of care and expected duration. Pain level reassessed. Patient is alert, oriented x 3, equal unlabored respirations, skin warm/dry/pink. Pt d/c home. Vital Signs: 11:04 BP 138 / 89; Pulse 75; Resp 17; Temp 98.8; Pulse Ox 98% ; Weight 102.06 kg; Height 5 ll1 ft. 9 in. (175.26 cm); Pain 4/10; 13:54 BP 107 / 83 LA (auto/lg); Pulse 67; Resp 20 S; Pulse Ox 100% on R/A; jp3 15:46 BP 112 / 78; Pulse 71; Resp 18; Temp 98.0; Pulse Ox 98% on R/A; ph 11:04 Body Mass Index 33.23 (102.06 kg, 175.26 cm) ll1 ED Course: 10:53 Patient arrived in ED. rg4 11:00 Deny Hernandez MD is Attending Physician. kdr 11:01 Arm band placed on. ll1 11:07 Triage completed. ll1 11:56 Paris Anderson, AUTUMN is Primary Nurse. ph 13:45 Initial lab(s) drawn, by me, sent to lab. COVID swab sent to lab. Flu and/or RSV swab jp3 sent to lab. Inserted saline lock: 20 gauge in right antecubital area, using aseptic technique. Blood collected. 13:45 Patient maintains SpO2 saturation greater than 95% on room air. jp3 13:53 Bed in low position. Call light in reach. Side rails up X 1. Verbal reassurance given. jp3 Pulse ox on. NIBP on. 13:58 Flu Sent. sv 13:58 COVID-19 : Document "Date of Symptom Onset" if Symptomatic. Sent. sv 13:58 Basic Metabolic Panel Sent. sv 13:58 CBC with Diff Sent. sv 13:58 Hepatic Function Sent. sv 13:58 Lipase Sent. sv 14:12 No provider procedures requiring assistance completed. ph 15:46 IV discontinued, intact, bleeding controlled, No redness/swelling at site. Pressure ph dressing applied. Administered Medications: 15:35 Drug: SOLU-Medrol 125 mg Route: IVP; Site: right antecubital; ph 15:44 Follow up: Response: No adverse reaction ph Outcome: 15:01 Discharge ordered by . kdr 15:46 Discharged to home ambulatory. ph 15:46 Condition: good 15:46 Discharge instructions given to patient, Instructed on discharge instructions, follow up and referral plans. medication usage, Demonstrated understanding of instructions, follow-up care, medications, Prescriptions given X 2. 15:47 Patient left the ED. ph Signatures: Arielle Doyle, RN RN Deny Manrique MD MD kdr Hall, Patricia, RN RN ph Garcia, Rubi rg4 Wayne Corona jp3 Mainor Mercado RN RN ll1
--- NOTE | 2020-10-26 15:03 | EDPHYS ---
Physician Documentation [facility] Name: Boris Beebe Age: 25 yrs Sex: Male : 1995 Arrival Date: 10/26/2020 Time: 10:53 Bed 20 Private MD: ED Physician Deny Hernandez HPI: 10/26 17:53 This 25 yrs old Male presents to ER via Ambulatory with complaints of Runny kdr Nose, Cough, Vomiting. 17:53 The patient or guardian reports cough, that is intermittent, described as mild, with kdr productive sputum, that is bloody, difficulty breathing. Onset: The symptoms/episode began/occurred gradually, 3 day(s) ago. Severity of symptoms: At their worst the symptoms were mild, just prior to arrival, in the emergency department the symptoms are unchanged. Associated signs and symptoms: Pertinent positives: chest pain, with cough, with movement, with breathing, nausea, Upper abdominal pain. The patient has not experienced similar symptoms in the past. The patient has been recently seen by a physician: The patient had recently been treated for a UTI with Cipro but had finished the abx last week. Historical: - Allergies: 12:29 NKA; sv - PSHx: 12:29 Tonsillectomy; Tib-Fib surgery; Skin Graft; sv - Immunization history:: Flu vaccine is not up to date. - Social history:: Smoking status: Patient denies any tobacco usage or history of. ROS: 17:53 Constitutional: Negative for fever, chills, and weight loss, Eyes: Negative for injury, kdr pain, redness, and discharge, ENT: Negative for injury, pain, and discharge, Neck: Negative for injury, pain, and swelling, Cardiovascular: Negative for chest pain, palpitations, and edema, Back: Negative for injury and pain, : Negative for injury, bleeding, discharge, and swelling, MS/Extremity: Negative for injury and deformity, Skin: Negative for injury, rash, and discoloration, Neuro: Negative for headache, weakness, numbness, tingling, and seizure activity. Psych: Negative for depression, anxiety, suicide ideation, homicidal ideation, and hallucinations, Allergy/Immunology: Negative for hives, rash, and allergies, Endocrine: Negative for neck swelling, polydipsia, polyuria, polyphagia, and marked weight changes, Hematologic/Lymphatic: Negative for swollen nodes, abnormal bleeding, and unusual bruising. 17:53 Respiratory: Positive for cough, with rust-colored sputum, dyspnea on exertion, hemoptysis, shortness of breath, on exertion. Negative for orthopnea, pleurisy. 17:53 Abdomen/GI: Positive for abdominal pain, of the right upper quadrant and left upper quadrant. Exam: 17:53 Constitutional: This is a well developed, well nourished patient who is awake, alert, kdr and in no acute distress. Head/Face: Normocephalic, atraumatic. Eyes: Pupils equal round and reactive to light, extra-ocular motions intact. Lids and lashes normal. Conjunctiva and sclera are non-icteric and not injected. Cornea within normal limits. Periorbital areas with no swelling, redness, or edema. Neck: Trachea midline, no thyromegaly or masses palpated, and no cervical lymphadenopathy. Supple, full range of motion without nuchal rigidity, or vertebral point tenderness. No Meningismus. Chest/axilla: Normal chest wall appearance and motion. Nontender with no deformity. No lesions are appreciated. Cardiovascular: Regular rate and rhythm with a normal S1 and S2. No gallops, murmurs, or rubs. Normal PMI, no JVD. No pulse deficits. Respiratory: Lungs have equal breath sounds bilaterally, clear to auscultation and percussion. No rales, rhonchi or wheezes noted. No increased work of breathing, no retractions or nasal flaring. Back: No spinal tenderness. No costovertebral tenderness. Full range of motion. Skin: Warm, dry with normal turgor. Normal color with no rashes, no lesions, and no evidence of cellulitis. MS/ Extremity: Pulses equal, no cyanosis. Neurovascular intact. Full, normal range of motion. Neuro: Awake and alert, GCS 15, oriented to person, place, time, and situation. Cranial nerves II-XII grossly intact. Motor strength 5/5 in all extremities. Sensory grossly intact. Cerebellar exam normal. Normal gait. Psych: Awake, alert, with orientation to person, place and time. Behavior, mood, and affect are within normal limits. 17:53 Abdomen/GI: Inspection: abdomen appears normal, Bowel sounds: active, diminished, in all quadrants, Palpation: soft, mild abdominal tenderness, in the right upper quadrant and left upper quadrant. Vital Signs: 11:04 BP 138 / 89; Pulse 75; Resp 17; Temp 98.8; Pulse Ox 98% ; Weight 102.06 kg; Height 5 ll1 ft. 9 in. (175.26 cm); Pain 4/10; 13:54 BP 107 / 83 LA (auto/lg); Pulse 67; Resp 20 S; Pulse Ox 100% on R/A; jp3 15:46 BP 112 / 78; Pulse 71; Resp 18; Temp 98.0; Pulse Ox 98% on R/A; ph 11:04 Body Mass Index 33.23 (102.06 kg, 175.26 cm) ll1 MDM: 15:01 Patient medically screened. kdr 17:57 Data reviewed: vital signs, nurses notes, lab test result(s), radiologic studies. kdr Counseling: I had a detailed discussion with the patient and/or guardian regarding: the historical points, exam findings, and any diagnostic results supporting the discharge/admit diagnosis, lab results, radiology results, the need for outpatient follow up. 10/26 13:18 Order name: Basic Metabolic Panel kdr 10/26 13:18 Order name: CBC with Diff kdr 10/26 13:18 Order name: Hepatic Function kdr 10/26 13:18 Order name: Lipase kdr 10/26 13:18 Order name: Flu kdr 10/26 13:18 Order name: COVID-19 : Document "Date of Symptom Onset" if Symptomatic. kdr 10/26 13:51 Order name: CBC with Automated Diff; Complete Time: 13:56 EDMS 10/26 14:14 Order name: XRAY Chest (1 view) ph 10/26 14:22 Order name: Basic Metabolic Panel; Complete Time: 15:00 EDMS 10/26 14:22 Order name: Liver (Hepatic) Function; Complete Time: 15:00 EDMS 10/26 14:22 Order name: Lipase; Complete Time: 15:00 EDMS 10/26 14:43 Order name: COVID-19/FLU A+B; Complete Time: 15:00 EDMS 10/26 13:18 Order name: IV Saline Lock; Complete Time: 13:53 kdr 10/26 13:18 Order name: Labs collected and sent; Complete Time: 13:53 kdr 10/26 14:44 Order name: RAD; Complete Time: 15:00 ED[facility] Administered Medications: 15:35 Drug: SOLU-Medrol 125 mg Route: IVP; Site: right antecubital; ph 15:44 Follow up: Response: No adverse reaction ph Disposition: 10/26/20 15:01 Discharged to Home. Impression: Shortness of breath, Hemoptysis, Bronchitis, not specified as acute or chronic. - Condition is Stable. - Discharge Instructions: How to Use an Inhaler, Shortness of Breath, [id number], Metered Dose Inhaler (No Spacer Used), Acute Bronchitis, [id number], Upper Respiratory Infection, Adult, [id number]. - Prescriptions for Prednisone 20 mg Oral Tablet - take 1 tablet by ORAL route once daily for 5 days; 5 tablet. Albuterol Sulfate 90 mcg/actuation - inhale 1-2 puff by INHALATION route every 4-6 hours; 1 Inhaler. - Medication Reconciliation Form, Thank You Letter form. - Follow up: Private Physician; When: 2 - 3 days; Reason: If symptoms return, Further diagnostic work-up, Recheck today's complaints, Continuance of care, Re-evaluation by your physician. - Problem is new. - Symptoms have improved. Signatures: Dispatcher [employer] [facility] Arielle Doyle RN RN Deny Hernandez MD MD kdr Paris Anderson RN RN Mainor Mercado RN RN ll1 Corrections: (The following items were deleted from the chart) 15:47 15:01 10/26/2020 15:01 Discharged to Home. Impression: Shortness of breath; Hemoptysis; ph Bronchitis, not specified as acute or chronic. Condition is Stable. Forms are Medication Reconciliation Form, Thank You Letter, Antibiotic Education, Prescription Opioid Use. Follow up: Private Physician; When: 2 - 3 days; Reason: If symptoms return, Further diagnostic work-up, Recheck today's complaints, Continuance of care, Re-evaluation by your physician. Problem is new. Symptoms have improved. kdr
[2020-10-26] MEDS ORDERED: METHYLPREDNISOLONE 125 MG INJ ONE (15:47)
[2020-10-27 10:12] VITALS: BP 112/78; TEMP 98; O2SAT 98
== END 2020-10-26 15:47 | disposition home or self-care (01) ==
LOC: ER 10:50
DX: J40 Bronchitis, not specified as acute or chronic (principal); R04.2 Hemoptysis; Z20.822 Contact with and (suspected) exposure to COVID-19
CPT/HCPCS: 85025; 80048; 36415; 80076; 83690; 0240U; 71045; 96374; 99284; J2930

== ENCOUNTER 2021-02-27 12:18 | Emergency (ER) | payer BC ==
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
--- NOTE | 2021-02-27 14:48 | RAD REPORT ---
EXAM DESCRIPTION: RAD - Shoulder Left 2 View - 02/27/2021 2:40 pm CLINICAL HISTORY: PAIN COMPARISON: Shoulder Left 2 View dated 04/25/2017 FINDINGS: Mild widening of the AC joint is seen suspicious for a grade 1 separation. No acute fractu re evident.
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
--- NOTE | 2021-02-27 15:07 | ER ---
Nurse's Notes [facility] Name: Boris Beebe Age: 25 yrs Sex: Male : 1995 Arrival Date: 02/27/2021 Time: 12:20 Bed DX3 Private MD: Diagnosis: Sprain of left acromioclavicular joint, initial encounter-GRADE 1 SEPARATION Presentation: 02/27 13:09 Chief complaint: Patient states: Tackled yesterday while trying to diffuse a situation, jl7 reports left shoulder pain. Coronavirus screen: Client denies travel out of the [place] in the last 14 days. At this time, the client does not indicate any symptoms associated with coronavirus-19. Ebola Screen: No symptoms or risks identified at this time. Initial Sepsis Screen: Does the patient meet any 2 criteria? No. Patient's initial sepsis screen is negative. Does the patient have a suspected source of infection? No. Patient's initial sepsis screen is negative. Risk Assessment: Do you want to hurt yourself or someone else? Patient reports no desire to harm self or others. Onset of symptoms was February 26, 2021. Care prior to arrival: None. 13:09 Method Of Arrival: Ambulatory [facility] 13:09 Acuity: MARY 4 jl7 Historical: - Allergies: 13:10 NKA; jl7 - PMHx: 13:10 Anxiety; back pain; jl7 - Immunization history:: Adult Immunizations up to date. - Social history:: Smoking status: Patient reports the use of cigarette tobacco products, smokes one-half pack cigarettes per day. - Family history:: not pertinent. Vital Signs: 13:09 BP 123 / 74; Pulse 97; Resp 19; Temp 98.6; Pulse Ox 99% on R/A; Weight 108.86 kg; jl7 Height 5 ft. 8 in. (172.72 cm); Pain 9/10; 13:09 Body Mass Index 36.49 (108.86 kg, 172.72 cm) jl7 ED Course: 12:20 Patient arrived in ED. as 13:09 Ernestina Cao RN is Primary Nurse. jl7 13:10 Triage completed. jl7 13:10 Arm band placed on right wrist. jl7 13:11 Patient placed in waiting room, Patient notified of wait time. jl7 14:12 Tan Pierce MD is Attending Physician. simon 14:40 XRAY Shoulder LEFT 2 view In Process Unspecified. EDMS 15:06 Hugo Byers MD is Referral Physician. simon Administered Medications: 15:24 Drug: Motrin (ibuprofen) 800 mg Route: PO; iw Outcome: 15:07 Discharge ordered by . simon 15:25 Patient left the ED. iw Signatures: Dispatcher [employer] EDIA Tan Pierce MD MD cha Martinez, Amelia as Williams, Irene, RN RN Ernestina Harden RN RN jl7
[2021-02-27 15:35] VITALS: BP 123/74; TEMP 98.6; O2SAT 99
[2021-02-27] MEDS ORDERED: IBUPROFEN 400 MG TAB ONE (15:35)
== END 2021-02-27 15:25 | disposition home or self-care (01) ==
LOC: ER 12:18
DX: S43.102A Unspecified dislocation of left acromioclavicular joint, initial encounter (principal); S43.52XA Sprain of left acromioclavicular joint, initial encounter; F17.210 Nicotine dependence, cigarettes, uncomplicated; W19.XXXA Unspecified fall, initial encounter; Y92.89 Other specified places as the place of occurrence of the external cause
CPT/HCPCS: 99283

== ENCOUNTER 2021-11-11 02:05 | Emergency (ER) | payer BC ==
--- OUTSIDE RECORDS SUMMARY | 2021-11-11 02:07 | XMS REPORT | Continuity of Care Document ---
:1995 Author Organization [facility] t Address [address] [place] [address] Care Team Providers Name Role Phone Mark Gaytan Attending Clinician Mark SILVER Attending Clinician Unavailable Lab, Fam Pob I Attending Clinician Unavailable Anene EQUIPMENT TECH Attending Clinician ANENE Attending Clinician Unavailable Doctor Unassigned, Name Attending Clinician Unavailable Payers Payer Name Policy Type Policy Number Effective Date Expiration Date S ource Problems Condition Condition Condition Status Onset Resolution Last Treating Co mments Source Name Details Category Date Date Treatment Clinician Date No known No known Disease Unive rs active active ity of problems problems [facility] Allergies, Adverse Reactions, Alerts Allergy Allergy Status Severity Reaction(s) Onset Inactive Treating Comm ents Source Name Type Date Date Clinician NO KNOWN Drug Active Univers ALLERGIE Class ity of S [facility] Social History Social Habit Start Date Stop Date Quantity Comments Source Exposure to Yes [place] of SARS-CoV-2 [facility] (event) Branch History [facility] University o f Alcohol Std [place] [facility] Drinks Branch History [facility] University o f Alcohol Binge [facility] Tobacco use and 2021-03-01 2021-03-01 Never used Universit y of exposure 00:00:00 00:00:00 [facility] Alcohol intake 2021-03-01 2021-03-01 Lifetime University of 00:00:00 00:00:00 non-drinker [facility] (finding) Branch History [facility] 2021-03-01 2021-03-01 1 University o f Alcohol Frequency 00:00:00 00:00:00 [facility] edical [place] Sex Ass[birth year] Universit y of 00:00:00 00:00:00 [facility] Smoking Status Start Date Stop Date Source Unknown if ever smoked Universit y of [facility] Never smoker [facility] Medications Ordered Filled Start Stop Current Ordering Indication Dosage Frequency Signature Comments Components Source Medication Medication Date Date Medication? Clinician (SIG) Name Name lore Yes 4647 1{tbl} Take 1 Un arlene en-codeine 7-15 tablet by ity of (TYLENOL-CO 00:00: mouth [place] DEINE #3) 00 every 4 Medical 300-30 mg (four) Branch tablet hours as needed for Pain (scale 4-6) or Pain (scale 7-10). Indication s: acute pain cyclobenzap Yes cyclobenza Univers rine 10 mg 7-07 joan 10 ity o f tablet 20:13: mg tablet [address] Branch cyclobenzap Yes cyclobenza Univers rine 10 mg 7-07 joan 10 ity o f tablet 20:13: mg tablet [address] cyclobenzap Yes cyclobenza Univers rine 10 mg 7-07 joan 10 ity o f tablet 20:13: mg tablet [address] acetaminoph 2020- Yes 1{tbl} Take 1 Un arlene en-codeine 6-26 tablet by ity of 300-60 mg 00:00: mouth 3 [place] tablet 00 (three) Medical times Branch daily. acetaminoph 2020-0 Yes 1{tbl} Take 1 Un arlene en-codeine 6-26 tablet by ity of 300-60 mg 00:00: mouth 3 [place] tablet 00 (three) Medical times Branch daily. acetaminoph 2020-0 Yes 1{tbl} Take 1 Un arlene en-codeine 6-26 tablet by ity of 300-60 mg 00:00: mouth 3 [place] tablet 00 (three) Medical times Branch daily. omeprazole 2020-0 Yes 40mg Take 40 mg U nivers 40 mg 6-25 by mouth ity of capsule 00:00: daily. [address] zolpidem 10 Yes TAKE ONE Un arlene mg tablet 6-25 (1) ity of 00:00: TABLET(S) [place] [address] BY MOUTH Medical AT BEDTIME Branch NEEDED FOR INSOMNIA. omeprazole 2021-0 Yes 40mg Take 40 mg U nivers 40 mg 6-25 by mouth ity of capsule 00:00: daily. [facility] zolpidem 10 Yes TAKE ONE Un arlene mg tablet 6-25 (1) ity of 00:00: TABLET(S) BY MOUTH Medical AT BEDTIME [place] NEEDED FOR INSOMNIA. omeprazole Yes 40mg Take 40 mg U nivers 40 mg 6-25 by mouth ity of capsule 00:00: daily. [facility] zolpidem 10 Yes TAKE ONE Un arlene mg tablet 6-25 (1) ity of 00:00: TABLET(S) BY MOUTH Medical AT BEDTIME [place] NEEDED FOR INSOMNIA. Fenofibrate Yes 1{tbl} Take 1 Un arlene 160 mg 4-12 tablet by ity of tablet 00:00: mouth 00 daily. [facility] Fenofibrate Yes 1{tbl} Take 1 Un arlene 160 mg 4-12 tablet by ity of tablet 00:00: mouth 00 daily. [facility] Fenofibrate Yes 1{tbl} Take 1 Un arlene 160 mg 4-12 tablet by ity of tablet 00:00: mouth daily. [facility] Vital Signs Vital Name Observation Time Observation Value Comments Source Body height 2021-03-01 20:12:00 172.7 cm [facility] Body weight 2021-03-01 20:12:00 108.863 kg [facility] BMI 2021-03-01 20:12:00 36.49 kg/m2 [facility] Procedures This patient has no known procedures. Encounters Start End Encounter Admission Attending Care Care Encounter Source Date/Time Date/Time Type Type Clinicians Facility Department ID 2021-03-09 2021-03-09 Telephone KAYLEE Silver 1..[id number] [facility] 00:00:00 00:00:00 [facility] [email or web address] [id number] it y of Surgical [id number] [place] as Specialti [phone] Ca dical [address] 2021-03-01 2021-03-01 Office KAYLEE Silver [id number] Univers 14:12:46 14:27:46 Visit [facility] Health [id number] it y of Surgical [id number] [place] Specialti [id number] Ca dical [facility] 2021-03-01 2021-03-01 [facility] [id number] Univers 14:15:00 14:15:00 EARL [id number] ity [facility] 2021-03-01 2021-03-01 [facility] [id number] Univers 14:15:00 14:15:00 [facility] 2021-02-28 2021-02-28 [facility] [id number] Univers 13:30:00 13:30:00 EARL [id number] ity [facility] 2021-02-28 2021-02-28 [facility] [id number] Univers 13:30:00 13:30:00 [facility] 2020-04-06 2020-04-06 Laboratory Lab, [facility] [id number] 16:10:53 16:30:53 Only Fam Pob I Health [id number] [place] [id number] Professio [phone] [address] 2020-04-06 2020-04-06 Laboratory Lab, [facility] Fam Pob I [facility] 1.2. [id number] Univers 16:10:53 16:30:53 Only Vonnielaurel [facility] [id number] ity [facility] [id number] [place] as Professio [phone] Ca dical [facility] 044 [place] Office Building [facility] 2020-04-06 2020-04-06 Outpatient [facility] [id number] Univers 16:20:00 16:20:00 YOLIS [facility] 2020-04-06 2020-04-06 Letter Doctor KELLY [id number] Univers 00:00:00 00:00:00 (Out) Unassigned, LEILA [id number] ity of [place] [facility] [id number] [place] as [phone] [facility] 044 Branch 2020-04-06 2020-04-06 Letter Doctor LETICIA [id number] 00:00:00 00:00:00 (Out) Unassigned, LEILA [id number] [place] [facility] [phone] 044 Results This patient has no known results.
--- NOTE | 2021-11-11 03:00 | EDPHYS ---
Physician Documentation [facility] Name: Boris Beebe Age: 26 yrs Sex: Male : 1995 Arrival Date: 11/11/2021 Time: 02:07 Bed 4 Private MD: ED Physician Deny Hernandez HPI: 11/11 02:50 This 26 yrs old Male presents to ER via EMS with complaints of Unresponsive. cp 02:50 The patient presents with decreased responsiveness. Onset: The symptoms/episode cp began/occurred just prior to arrival. Possible causes: drug use, alcohol. Associated signs and symptoms: The patient has no apparent associated signs or symptoms. Current symptoms: In the emergency department the patient's symptoms have improved, markedly, is more alert. Patient's baseline: Neuro: alert and fully oriented, Motor: no deficits, Ambulation: walks without assistance, Speech: normal. EMS reports patient was found by friends to be unresponsive. Given 4 mg Narcan by EMS and now patient alert and awake. Patient reports last memory is drinking at bar with friends. Historical: - Allergies: 02:30 NKA; ll3 - Home Meds: 02:30 Clonazepam Oral [Active]; Tylenol #4 Oral [Active]; ll3 - PMHx: 02:30 Anxiety; Back pain; ll3 - Immunization history:: Client reports receiving the 2nd dose of the Covid vaccine. - Social history:: Smoking status: Reported history of juuling and/or vaping. ROS: 02:53 Constitutional: Negative for body aches, chills, fever, poor PO intake. cp 02:53 Cardiovascular: Negative for chest pain. cp 02:53 Respiratory: Negative for cough, shortness of breath, wheezing. 02:53 Abdomen/GI: Negative for abdominal pain, vomiting, diarrhea, constipation. 02:53 Neuro: Negative for altered mental status, dizziness, headache, weakness. 02:53 All other systems are negative. Exam: 02:55 Constitutional: The patient appears in no acute distress, alert, awake, cp non-diaphoretic, non-toxic, well developed, well nourished. 02:55 Head/Face: Normocephalic, atraumatic. cp 02:55 Eyes: Periorbital structures: appear normal, Pupils: pinpoint, bilaterally, Extraocular movements: intact throughout, Conjunctiva: normal, no exudate, no injection, Sclera: no appreciated abnormality, Lids and lashes: appear normal, bilaterally. 02:55 ENT: External ear(s): are unremarkable, Ear canal(s): are normal, clear, TM's: dullness, bilaterally, Nose: is normal, Mouth: Lips: moist, Oral mucosa: moist, Posterior pharynx: Airway: no evidence of obstruction, patent. 02:55 Neck: C-spine: vertebral tenderness, is not appreciated, crepitus, is not appreciated, ROM/movement: is normal, is supple, without pain, no range of motions limitations. 02:55 Chest/axilla: Inspection: normal, Palpation: is normal, no crepitus, no tenderness. 02:55 Cardiovascular: Rate: tachycardic, Rhythm: regular, Heart sounds: murmur, not appreciated, Edema: is not appreciated, JVD: is not appreciated. 02:55 Respiratory: the patient does not display signs of respiratory distress, Respirations: normal, no use of accessory muscles, no retractions, labored breathing, is not present, Breath sounds: are clear throughout, no decreased breath sounds, no stridor, no wheezing. 02:55 Abdomen/GI: Inspection: abdomen appears normal, Palpation: abdomen is soft and non-tender, in all quadrants. 02:55 Musculoskeletal/extremity: Exam is negative for decreased range of motion, deformity, injury. 02:55 Neuro: Orientation: to person, place \T\ time. Mentation: able to follow commands, Motor: moves all fours, strength is normal, Sensation: no obvious gross deficits, Gait: is steady. Vital Signs: 02:26 BP 134 / 75; Pulse 109; Resp 18; Temp 98.0; Pulse Ox 98% on R/A; Weight 26.31 kg; ll3 Height 2 ft. 40 in. (162.56 cm); Pain 0/10; 02:26 Body Mass Index 9.96 (26.31 kg, 162.56 cm) ll3 [place] Coma Score: 02:55 Eye Response: spontaneous(4). Verbal Response: oriented(5). Motor Response: obeys cp commands(6). Total: 15. MDM: 02:15 Differential Diagnosis: alcohol intoxication, hypoglycemia, intracranial bleed, cp overdose, seizure, volume depletion. 02:58 Patient medically screened. cp 03:00 Data reviewed: vital signs, nurses notes. cp 03:00 Counseling: I had a detailed discussion with the patient and/or guardian regarding: the cp historical points, exam findings, and any diagnostic results supporting the discharge/admit diagnosis, to return to the emergency department if symptoms worsen or persist or if there are any questions or concerns that arise at home. Refusal of service: The patient/guardian displays adequate decision making capability and despite a detailed discussion of alternatives, benefits, risks, and consequences refuses: all lab tests. ED course: VSS. Patient alert times 3, appears clinically sober, ambulating with steady gait and no assistance. Patient requesting discharge to home against advice that he appears suspicious for alcohol and drug use. Patient cautioned, but will discharge to home for continued monitoring. 11/11 02:09 Order name: Acetaminophen cp 11/11 02:09 Order name: Basic Metabolic Panel cp 11/11 02:09 Order name: CBC with Diff cp 11/11 02:09 Order name: ETOH Level cp 11/11 02:09 Order name: Hepatic Function cp Administered Medications: No medications were administered Disposition Summary: 11/11/21 03:00 Discharge Ordered Location: Home cp Problem: new cp Symptoms: have improved cp Condition: Stable cp Diagnosis - Adverse effect of other drugs, medicaments and biological substances cp Followup: cp - With: Private Physician - When: 1 - 2 days - Reason: Recheck today's complaints Discharge Instructions: - Discharge Summary Sheet cp - Alcohol Use Disorder cp - Accidental Drug Poisoning, Adult cp Forms: - Medication Reconciliation Form cp - Thank You Letter cp - Antibiotic Education cp - Prescription Opioid Use cp Addendum: 11/16/2021 07:27 Co-signature as Attending Physician, Deny Hernandez MD I agree with the assessment and k dr plan of care. Signatures: Dispatcher [employer] EDMS Dney Hernandez MD MD [facility] Tan Arzate PA PA cp Larissa Plasencia RN RN ll3 Corrections: (The following items were deleted from the chart) 11/11 02:33 02:09 EKG - Nurse/Tech ordered. cp ll3 02: 02:09 IV Saline Lock ordered. cp ll3 02:33 02:09 Labs collected and sent ordered. cp ll3 02:33 02:09 Suicide Screening ([place]) ordered. cp ll3 02:33 02:09 Urine Dipstick-Ancillary ordered. cp ll3
--- NOTE | 2021-11-11 03:00 | ER ---
Nurse's Notes [facility] Name: Boris Beebe Age: 26 yrs Sex: Male : 1995 Arrival Date: 11/11/2021 Time: 02:07 Bed 4 Private MD: Diagnosis: Adverse effect of other drugs, medicaments and biological substances Presentation: 11/11 02:26 Chief complaint: EMS states: EMS toned out for possible overdose, EMS states found pt ll3 unresponsive with an O2 saturation of 7 and not breathing, states they administered 4 mg of Narcan and pt woke up, pt denies use of street drugs and states he was at the bar drinking with friends. Coronavirus screen: At this time, the client does not indicate any symptoms associated with coronavirus-19. Ebola Screen: No symptoms or risks identified at this time. Initial Sepsis Screen: Does the patient meet any 2 criteria? No. Patient's initial sepsis screen is negative. Does the patient have a suspected source of infection? No. Patient's initial sepsis screen is negative. Risk Assessment: Do you want to hurt yourself or someone else? Patient reports no desire to harm self or others. Onset of symptoms is unknown. Care prior to arrival: Medication(s) given: Narcan 4 mg IV initiated. 18 GA, in the right antecubital area, Glucose check: 350. Activity prior to arrival: unresponsive. 02:26 Method Of Arrival: EMS: [facility] 02:26 Acuity: MARY 3 ll3 Triage Assessment: 02:30 General: Appears uncomfortable, Behavior is cooperative, anxious. General: Smells of ll3 alcohol. Pain: Denies pain. Neuro: Level of Consciousness is awake, alert, obeys commands, Oriented to person, place, time, situation. Cardiovascular: Patient's skin is warm and dry. Respiratory: Respiratory effort is even, unlabored, Respiratory pattern is regular, symmetrical. Respiratory: Denies shortness of breath. Derm: Skin is pink, warm \T\ dry. Historical: - Allergies: 02:30 NKA; ll3 - Home Meds: 02:30 Clonazepam Oral [Active]; Tylenol #4 Oral [Active]; ll3 - PMHx: 02:30 Anxiety; Back pain; ll3 - Immunization history:: Client reports receiving the 2nd dose of the Covid vaccine. - Social history:: Smoking status: Reported history of juuling and/or vaping. Screenin:32 Abuse screen: Denies threats or abuse. Nutritional screening: No deficits noted. ll3 Tuberculosis screening: No symptoms or risk factors identified. Fall Risk IV access (20 points). Gait- Normal/Bed Rest/Wheelchair (0 pts) Mental Status- Oriented to own ability (0 pts). Total Jimenez Fall Scale indicates No Risk (0-24 pts). Vital Signs: 02:26 BP 134 / 75; Pulse 109; Resp 18; Temp 98.0; Pulse Ox 98% on R/A; Weight 26.31 kg; ll3 Height 2 ft. 40 in. (162.56 cm); Pain 0/10; 02:26 Body Mass Index 9.96 (26.31 kg, 162.56 cm) ll3 [place] Coma Score: 02:55 Eye Response: spontaneous(4). Verbal Response: oriented(5). Motor Response: obeys cp commands(6). Total: 15. ED Course: 02:07 Patient arrived in ED. mw2 02:23 Tan Arzate PA is PHCP. cp 02:23 Deny Hernandez MD is Attending Physician. cp 02:30 Triage completed. ll3 02:30 Arm band placed on Patient placed in an exam room, on a stretcher, on phototypesetting equipment monitor, ll3 on pulse oximetry. 02:32 Patient has correct armband on for positive identification. Placed in gown. Bed in low ll3 position. Call light in reach. Side rails up X 1. 02:32 monitor technician on. Pulse ox on. NIBP on. ll3 03:07 No provider procedures requiring assistance completed. IV discontinued, intact, ll3 bleeding controlled, No redness/swelling at site. Pressure dressing applied. Administered Medications: No medications were administered Outcome: 03:00 Discharge ordered by . cp 03:07 Discharged to home ambulatory. ll3 03:07 Condition: stable 03:07 Discharge instructions given to patient, Instructed on discharge instructions, follow up and referral plans. Demonstrated understanding of instructions, follow-up care. 03:08 Patient left the ED. ll3 Signatures: Tan Arzate PA PA cp [place], MyKena mw2 Larissa Plasencia RN RN ll3 Corrections: (The following items were deleted from the chart) 02:30 02:25 Chief complaint: ll3 ll3
[2021-11-11 03:34] VITALS: BP 134/75; TEMP 98; O2SAT 98
== END 2021-11-11 03:08 | disposition home or self-care (01) ==
LOC: ER 02:05
DX: T50.995A Adverse effect of other drugs, medicaments and biological substances, initial encounter (principal); F41.9 Anxiety disorder, unspecified
CPT/HCPCS: 99284